=== PATIENT | male | born 1965 | race Caucasian/White ===

== ENCOUNTER → 2021-03-25 | Outpatient (CLI) | payer OTHER, SELFPAY ==
--- NOTE | 2021-03-25 | DI.CT.S_ITS ---
PROCEDURE: CT SINUS SCREEN WO CON INDICATIONS: Nasal congestion TECHNIQUE: Noncontrast 3.0 mm axial images acquired from the frontal sinuses to the mid-sella, with coronal and sagittal reformats. For radiation dose reduction, the following was used: automated exposure control, adjustment of mA and/or kV according to patient size. COMPARISON: None. FINDINGS: Image quality: Excellent. Maxillary Sinuses: The medial wall of the left maxillary sinus has been removed. A mild amount of mucosal thickening can be seen involving the inferior right maxillary sinus. A small mucous retention cyst is also seen within the right maxillary sinus inferomedially. Ethmoid Air Cells: No bony remodeling or destruction. Sinuses are clear. Sphenoid Sinuses: No bony remodeling or destruction. Sinuses are clear. Frontal Sinuses: No bony remodeling or destruction. Sinuses are clear. Ostiomeatal Complexes: The left ostiomeatal complex has been removed. The right ostiomeatal complex is constitutionally narrowed, with right-sided Luke air cells Miscellaneous: Visualized intra-orbital contents are normal. 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 There is minimal rightward nasal septal deviation. IMPRESSION: There is a mild amount of mucosal thickening seen involving the right maxillary sinus. Prior sinus surgery, with left-sided antrectomy. Constitutionally narrowed right ostiomeatal complex, with right-sided Luke air cells. Left-sided genny bullosa, with mild rightward nasal septal deviation. Dictated by: Satya Mo M.D. on 03/25/2021 at 13:28 Approved by: Satya Mo M.D. on 03/25/2021 at 13:30
== END ==
PROVIDERS: PCP Internal Medicine; Referring Provider Internal Medicine; Visit Provider Internal Medicine
DX: R09.81 Nasal congestion (principal); J34.89 Other specified disorders of nose and nasal sinuses; J34.1 Cyst and mucocele of nose and nasal sinus
CPT/HCPCS: 70486